=== PATIENT | female | born 1980 | race Hispanic/Latino ===

== ENCOUNTER 2017-11-08 12:47 | Inpatient (IN) | payer SELFPAY ==
[2017-11-08 13:18] LABS: #Eosinphils 0.1 thou/uL (0.0-0.7); #Lymphocytes 2.7 thou/uL (1.20-3.40); #Monocytes 0.8 thou/uL (0.11-0.59); #Neutrophils 9.7 thou/uL (1.40-6.50); %Basophils 0.3 % (0.0-1.0); %Eosinophils 1.1 % (0.0-10.0); %Monocytes 5.8 % (0.0-10.0); %Neutrophils 72.9 % (42.0-75.0); Hemoglobin 15.6 g/dL (12.0-16.0); Mean Corpuscular HGB CONC 34.5 g/dL (32.0-36.0); Mean Corpuscular Hemoglobin 31.4 pg (27.0-31.0); Mean Corpuscular Volume 90.8 fL (78.0-98.0); Mean Platelet Volume 8.2 fL (7.4-10.4); Platelet Count 378 thou/uL (130-400); RBC Distribution Width 11.9 % (11.5-14.5); Red Blood Cell (RBC) Count 4.97 mill/uL (4.20-5.40); White Blood Cell (WBC) Count 13.3 thou/uL (4.8-10.8)
[2017-11-08 13:31] LABS: Bilirubin Negative (Negative); Blood, Urine Negative (Negative); Clarity CLEAR (Clear); Glucose, Urine (Dipstick) Negative (Negative); Leukocyte Negative (Negative); Nitrite Negative (Negative); Protein, Urine (Dipstick) Negative (Neg-Trace); Specific Gravity, Urine 1.013 (1.002-1.036); Urobilinogen 0.2 mg/dL (0.2-1.0)
[2017-11-08 13:36] LABS: Pregnancy Test - Urine (BHCG) Negative (Negative); Pregu Control Background? CLEAR/WHITE (CLR/WHITE); Pregu Control Bar Appear? YES (CONTROL BAR); Specific Gravity 1.014 (1.002-1.036)
[2017-11-08 13:40] LABS: ALT (SGPT) 27 U/L (8-55); AST (SGOT) 24 U/L (5-34); Albumin 4.8 g/dL (3.5-5.0); Alkaline Phosphatase 110 U/L (40-150); Anion Gap 12 mmol/L (10-20); BUN (Urea Nitrogen) 7 mg/dL (7.0-18.7); Bilirubin, Total 1.5 mg/dL (0.2-1.2); Calc. Creatinine Clearance 0 mL/min (70-130); Calcium 9.6 mg/dL (7.8-10.44); Carbon Dioxide 26 mmol/L (22-29); Chloride 102 mmol/L (98-107); Estimated GFR-MDRD Greater than 90; Globulin 3.5 g/dL (2.4-3.5); Glucose 98 mg/dL (70-105); Lipase 9 U/L (8-78); Potassium 3.8 mmol/L (3.5-5.1); Protein, Total 8.3 g/dL (6.0-8.3); Sodium 136 mmol/L (136-145)
[2017-11-08 14:09] LABS: CKMB 0.3 ng/mL (0-6.6); Troponin I Less than 0.010 ng/mL (< 0.028)
[2017-11-08] MEDS ORDERED: Morphine 4 MG/ML VIAL ONE ×2 (16:31→17:40)
[2017-11-08] MEDS ORDERED: Ondansetron HCl/PF 4 MG/2 ML Vial ONE ×2 (16:31→17:48)
--- NOTE | 2017-11-08 16:38 | ULT ---
GALLBLADDER ULTRASOUND: HISTORY: Abdominal pain with nausea and vomiting. FINDINGS: The gallbladder shows slight distention. There is a large echogenic gallstone in the neck of the gal lbladder, and there is echogenic sludge and/or gravel also in the neck of the gallbladder. The gallb ladder wall does not appear thickened. The common duct is of normal caliber, measured at 5 mm. The visualized liver, pancreas, and right kidney appear unremarkable. IMPRESSION: Cholelithiasis. A large gallstones is lodged in the neck of the gallbladder, and there is echogenic sludge/gravel in the gallbladder lumen. POS: KATHE
[2017-11-08] MEDS ORDERED: cefOXitin 2 GM, Syringe 1 ML in Sterile Water 10 ML SLOW IVP SCH (19:00)
[2017-11-08] MEDS ORDERED: cefOXitin 2 GM in Sodium Chloride 0.9% 100 ML IVPB SCH (19:15)
[2017-11-08] MEDS ORDERED: Ketorolac Tromethamine 30 MG/ML VIAL ONE (19:27)
[2017-11-08] MEDS ORDERED: Ondansetron HCl/PF 4 MG/2 ML Vial IVP PRN (20:52)
[2017-11-08] MEDS ORDERED: Ondansetron ODT 4 MG TAB SL PRN (20:52)
[2017-11-08] MEDS: Dextrose 5 % And 0.9 % NaCl 1,000 ML IV SCH (21:12)
[2017-11-08 22:57] VITALS: BMI 27.2
[2017-11-09 05:26] LABS: #Eosinphils 0.1 thou/uL (0.0-0.7); #Lymphocytes 1.8 thou/uL (1.20-3.40); #Monocytes 1.2 thou/uL (0.11-0.59); #Neutrophils 13.4 thou/uL (1.40-6.50); %Basophils 0.1 % (0.0-1.0); %Eosinophils 0.5 % (0.0-10.0); %Lymphocytes 11.1 % (21.0-51.0); %Monocytes 7.3 % (0.0-10.0); Mean Corpuscular HGB CONC 33.8 g/dL (32.0-36.0); Mean Corpuscular Hemoglobin 30.8 pg (27.0-31.0); Mean Platelet Volume 8.4 fL (7.4-10.4); Platelet Count 324 thou/uL (130-400); RBC Distribution Width 11.9 % (11.5-14.5); Red Blood Cell (RBC) Count 4.53 mill/uL (4.20-5.40); White Blood Cell (WBC) Count 16.5 thou/uL (4.8-10.8)
[2017-11-09 05:36] LABS: ALT (SGPT) 66 U/L (8-55); AST (SGOT) 57 U/L (5-34); Albumin 4.1 g/dL (3.5-5.0); Alkaline Phosphatase 121 U/L (40-150); Anion Gap 12 mmol/L (10-20); BUN (Urea Nitrogen) 7 mg/dL (7.0-18.7); Bilirubin, Total 1.5 mg/dL (0.2-1.2); Calc. Creatinine Clearance 136 mL/min (70-130); Calcium 8.6 mg/dL (7.8-10.44); Carbon Dioxide 20 mmol/L (22-29); Chloride 107 mmol/L (98-107); Estimated GFR-MDRD Greater than 90; Globulin 2.8 g/dL (2.4-3.5); Glucose 112 mg/dL (70-105); Potassium 3.5 mmol/L (3.5-5.1); Protein, Total 6.9 g/dL (6.0-8.3); Sodium 135 mmol/L (136-145)
[2017-11-09] MEDS: Dextrose 5 % And 0.9 % NaCl 1,000 ML IV SCH ×3 (06:36→20:56)
[2017-11-09] MEDS ORDERED: Ondansetron HCl/PF 4 MG/2 ML Vial IVP PRN ×3 (07:08→19:29)
--- NOTE | 2017-11-09 08:27 | HP ---
CHIEF COMPLAINT: Epigastric pain. HISTORY OF PRESENT ILLNESS: Ms. Holden is a previously healthy 37-year-old woman who presented to the emergency room with a 2-day history of epigastric abdominal pain. This came on Saturday and has be en unrelenting since its onset and nothing that she has tried at home has alleviated her pain. She h as had multiple episodes of nausea and nonbloody, non-coffee ground emesis and she has not had any ap petite. She denies fevers, chills, jaundice or icterus. She is unable to identify any triggering or exacerbating factors. She states that she has not really eaten since Saturday. PAST MEDICAL HISTORY: None. PAST SURGICAL HISTORY: Tubal ligation. FAMILY HISTORY: Mother and brother, status post laparoscopic cholecystectomy. No other significant family history. SOCIAL HISTORY: She does not smoke, drink or use illicit drugs. REVIEW OF SYSTEMS: Ten system review of systems is negative except per HPI. The patient states that she has had somewhat darker colored stools recently, but she denies any tarry or melenic appearance to the stool. ALLERGIES: She has no known drug allergies. MEDICATIONS: She takes no chronic medications at home. She was started on cefoxitin in the emergenc y room last night. PHYSICAL EXAMINATION: VITAL SIGNS: The patient has been afebrile since her admission. Heart rate 69, respirations 14, 98% saturated on room air, blood pressure 142/89. GENERAL: Reveals a healthy appearing young woman in no acute distress except for when she takes deep breath or moves around in the bed. HEENT: Unremarkable. NECK: Supple, without lymphadenopathy or thyroid nodules. HEART: Regular in its rate and rhythm without murmurs, rubs or gallops. LUNGS: Clear to auscultation bilaterally, but she does have pain when she takes deep breath. ABDOMEN: Soft and nondistended. She is very tender to palpation in the right upper quadrant with a positive Lenz sign, otherwise nontender to palpation. No palpable hernias or masses. EXTREMITIES: Warm and well perfused without edema. NEUROLOGIC: No focal deficits. PSYCHIATRIC: Alert, oriented, and appropriate. LABORATORY DATA AND X-RAY FINDINGS: White count is elevated at 16 this morning with a left shift. E lectrolytes are unremarkable. BUN is elevated at 1.5, AST and ALT are 57 and 66, lipase was normal o n admission. Ultrasound images are reviewed and I agree with the written report. The patient has a large stone impacted in the neck of the gallbladder. The common bile duct is normal. Her wall does not appear thickened, but on a few images, she appears to have some pericholecystic edema. ASSESSMENT: Cholelithiasis and cholecystitis. PLAN: Laparoscopic cholecystectomy with intraoperative cholangiogram today. I think it is unlikely that she has choledocholithiasis and I suspect that her elevated LFTs are due to her cholecystitis ho wever. The patient's diagnosis and the recommended treatment were discussed with her and her in detail. Inherent risks of the surgery were also discussed. These include but are not limited to bleeding, infection, risks of anesthesia, damage to nearby structures including bowel, liver and ed e duct, need for open surgery, need for other procedures. She understands and accepts these risks an d wishes to proceed. We will maintain her on IV fluids, bowel rest and antibiotics pending her surge ry which should be this morning.
[2017-11-09] MEDS: cefOXitin 2 GM in Sodium Chloride 0.9% 100 ML IVPB SCH ×2 (08:32→20:59)
[2017-11-09] MEDS ORDERED: HYDROmorphone 0.5 MG/0.5 ML SYRINGE ONE (09:27)
[2017-11-09] MEDS ORDERED: Fentanyl 100 MCG/2 ML VIAL ONE ×2 (10:58→17:42)
[2017-11-09] MEDS ORDERED: Bupivacaine/Epinephrine 0.25% 30 ML VIAL ONE ×2 (11:08→18:31)
[2017-11-09] MEDS ORDERED: Iothalamate Meglumine 60% 50 ML VIAL FS ONE (11:08)
[2017-11-09] MEDS ORDERED: cefOXitin 2 GM VIAL ONE (11:44)
[2017-11-09] MEDS ORDERED: HYDROmorphone 2 MG/ML VIAL SLOW IVP PRN ×2 (12:29→19:29)
[2017-11-09] MEDS ORDERED: Promethazine HCl 25 MG/ML VIAL SLOW IVP PRN ×2 (12:29→19:29)
[2017-11-09] MEDS ORDERED: Promethazine HCl 25 MG/ML VIAL IM PRN ×2 (12:29→19:29)
--- NOTE | 2017-11-09 12:46 | RAD ---
INTRAOPERATIVE CHOLANGIOGRAM: DATE: 11/09/17. HISTORY: Laparoscopic cholecystectomy in a patient with cholelithiasis. FINDINGS: Intraoperative fluoroscopic images were provided for Dr. Robledo. Two provided images of the right u pper quadrant demonstrate surgical instruments overlying the right upper quadrant. Cystic duct is ca nnulated with surgical clips adjacent to the cystic duct. There is opacification of the common duct with evidence of free spill of contrast into the duodenum. There is only limited opacification of th e intrahepatic bile ducts which are not particularly dilated. The common duct is at the upper limits of normal. No persistent filling defect is seen within the common duct. There is slight irregularit y of the most distal common duct, but this is probably within normal limits. Correlation with intrao perative findings is recommended. POS: KATHE
[2017-11-09] MEDS ORDERED: Acetaminophen 325 MG TAB PO PRN ×2 (13:28→13:29)
[2017-11-09] MEDS ORDERED: HYDROcodone/Acetaminophen 7.5/325 mg Tablet PO PRN (13:29)
[2017-11-09] MEDS ORDERED: Ibuprofen 200 MG TAB PO PRN ×2 (13:31)
--- NOTE | 2017-11-09 14:47 | PDOC.OP ---
Operative Note - Operative Note Operative Note: PROCEDURE: Laparoscopic cholecystectomy with intraoperative cholangiogram SURGEON: Gianni Robledo M.D. DATE OF PROCEDURE: 11/09/2017 11/09/2017 PREOPERATIVE DIAGNOSIS: Cholelithiasis and cholecystitis, possible choledocholithiasis: POSTOPERATIVE DIAGNOSIS: Cholelithiasis and cholecystitis HISTORY: Patient with severe unrelenting epigastric pain and ultrasound showing a stone lodged in the neck of the gallbladder with pericholecystic fluid. Laparoscopic cholecystectomy was recommended for symptomatically relief.: 2 g was recommended due to mild elevation of LFTs. FINDINGS: Distended and inflamed edematous gallbladder with large gallstone in the neck of the gallbladder. Small cystic duct and normal cholangiogram. PROCEDURE IN DETAIL: After informed consent was obtained and appropriate preoperative antibiotics were administered, the patient was taken to the operating room and placed in the supine position and general endotracheal anesthesia was administered. The stomach was decompressed with an OG tube and the abdomen was prepped and draped in standard sterile fashion. Local anesthesia was infused to the skin and subcutaneous tissues at the umbilical level. A transverse skin incision was made. The fascia was elevated and a Veress needle was placed into the abdominal cavity without difficulty. Opening pressure was less than 5 and carbon dioxide gas easily insufflated to an intra- abdominal pressure of 15, which the patient tolerated well. The Veress needle was withdrawn and a [place] port advanced under direct vision. The abdominal cavity was carefully examined. There was no evidence of Veress needle or of trocar injury. Local anesthesia was infused to the skin and subcutaneous tissues at the epigastric, right upper quadrant, and right lateral abdominal sites and trocars were placed under direct vision of the laparoscope. The fundus of the gallbladder was too taut to grasp so it was aspirated with removal of about 100 mL's of colorless bile. Following this the fundus was able to be grasped and retracted superiorly. The infundibulum was grasped and retracted laterally. The serosa was stripped inferiorly at the level of the neck of the gallbladder exposing the cystic duct and artery which were traced clearly to their insertion in the gallbladder. These were dissected free circumferentially and the cystic duct was clipped at the level of the neck of the gallbladder. The cystic artery was clipped but not divided. An incision was made in the cystic duct inferior to the clip and the cystic duct was palpated with no stones palpable. Clear bile was seen to flow from the cystic duct incision. A cholangiogram catheter was introduced and placed into the cystic duct and secured with a clip. A cholangiogram was obtained which showed an adequate length of cystic duct. There was normal filling of the common bile duct with free flow of contrast into the duodenum. There was normal retrograde flow into the common hepatic duct beyond the level of the bifurcation without filling defects. The cholangiogram catheter was removed and the cystic duct clipped below the incision in the cystic duct. The cystic duct was divided between these clips and the previously placed clip. The cystic artery was clipped and divided between the previously placed clips. 2 additional small branches of the cystic artery were identified posteriorly and these were also clipped and divided between clips. The gallbladder was then dissected free of the gallbladder bed using hook electrocautery. Prior to complete removal of the gallbladder from the gallbladder bed, the area of the cystic duct and artery stumps was examined. The clips were in good position completely across these structures and there was no bleeding and no leakage of bile. The gallbladder was then placed into an EndoCatch bag and drawn out through the epigastric incision. The epigastric trocar was replaced and the operative site easily irrigated to clear. There was no significant bleeding or spillage of bile. The epigastric trocar was removed and the fascia closed under direct laparoscopic vision with a 0 Vicryl suture on a GraNee needle in a figure-of- eight manner with excellent technical result. The right upper quadrant and right lateral abdominal trocars were removed and hemostasis verified. Carbon dioxide gas was allowed to desufflate through the umbilical trocar which was then removed. The skin incisions were closed with 4-0 subcuticular Monocryl sutures and Dermabond dressings were placed. The patient was extubated and taken to the recovery room in good condition. There were no complications. ESTIMATED BLOOD LOSS: Minimal. SPECIMEN : Gallbladder and contents.
[2017-11-09] MEDS ORDERED: Ketorolac Tromethamine 30 MG/ML VIAL ONE (15:59)
[2017-11-09] MEDS ORDERED: PHENYLEPHRINE-NS 100 MCG/ML 10 ML SYRINGE ONE (15:59)
[2017-11-09] MEDS ORDERED: Ondansetron HCl/PF 4 MG/2 ML Vial ONE ×2 (15:59)
[2017-11-09] MEDS ORDERED: Lidocaine 1% PF 5 ML VIAL ONE (15:59)
[2017-11-09] MEDS ORDERED: Succinylcholine Chloride 20 MG/ML 10 ml SYRINGE FS ONE (15:59)
[2017-11-09] MEDS ORDERED: Dexamethasone 20 MG/5 ML VIAL ONE (15:59)
[2017-11-09] MEDS ORDERED: PROPOFOL 200 MG/20 ML VIAL ONE (15:59)
[2017-11-09] MEDS ORDERED: Glycopyrrolate 0.2 MG/ML 5 ML SYRINGE ONE (15:59)
[2017-11-09] MEDS ORDERED: Sodium Chloride 0.9% 1,000 ML IV SCH (16:45)
--- NOTE | 2017-11-09 17:18 | CT ---
NONCONTRAST CT ABDOMEN AND PELVIS: 11/09/17 HISTORY: Diaphoretic and hypotensive. Concern for bleed. FINDINGS: There is increased density fluid seen adjacent to the right hepatic lobe and extending into the right pericolic gutter as well as into the pelvis related to hemorrhage. Fluid is also seen adjacent to th e spleen. Post cholecystectomy changes are noted. There is free intraperitoneal gas related to recent postsurgical changes. Stranding is seen within the anterior abdomen likely related to port sites. There is bibasilar atelectasis. The spleen, pancreas, bilateral adrenal glands, kidneys, urinary bladder, and uterus demonstrate a gr ossly normal nonenhanced CT appearance. Small fat containing umbilical hernia is identified. IMPRESSION: 1. Evidence of hemorrhage adjacent to the liver, in the region of the gallbladder fossa and exte nding into the right paracolic gutter and subsequently into the pelvis. There is evidence of post cho lecystectomy changes with pneumoperitoneum likely related to the recent postsurgical changes. 2. Above findings were discussed with Dr. Robledo on 11/09/17 at 1706 hours. POS: KATHE
[2017-11-09] MEDS ORDERED: Ketamine 50 MG/ML VIAL ONE (17:42)
[2017-11-09] MEDS ORDERED: Midazolam HCl 2 mg/2 ml Vial ONE (17:42)
[2017-11-09 20:26] LABS: Hemoglobin 12.5 g/dL (12.0-16.0)
[2017-11-09] MEDS: HYDROcodone/Acetaminophen 7.5/325 mg Tablet PO PRN (21:06)
[2017-11-09 21:07] LABS: INR-International Normal Ratio 1.2; PTT 25.8 SEC (22.9-36.1); Prothrombin Time 15.6 SEC (12.0-14.7)
[2017-11-10 06:06] LABS: #Lymphocytes 1.9 thou/uL (1.20-3.40); #Monocytes 1.5 thou/uL (0.11-0.59); #Neutrophils 10.2 thou/uL (1.40-6.50); %Eosinophils 0.3 % (0.0-10.0); %Monocytes 10.7 % (0.0-10.0); %Neutrophils 74.9 % (42.0-75.0); Hemoglobin 8.5 g/dL (12.0-16.0); Mean Corpuscular HGB CONC 34.1 g/dL (32.0-36.0); Mean Corpuscular Hemoglobin 31.2 pg (27.0-31.0); Mean Corpuscular Volume 91.3 fL (78.0-98.0); Mean Platelet Volume 8.3 fL (7.4-10.4); Platelet Count 249 thou/uL (130-400); RBC Distribution Width 11.8 % (11.5-14.5); Red Blood Cell (RBC) Count 2.72 mill/uL (4.20-5.40); White Blood Cell (WBC) Count 13.6 thou/uL (4.8-10.8)
[2017-11-10 06:08] LABS: ALT (SGPT) 77 U/L (8-55); AST (SGOT) 67 U/L (5-34); Alkaline Phosphatase 74 U/L (40-150); Anion Gap 10 mmol/L (10-20); BUN (Urea Nitrogen) 6 mg/dL (7.0-18.7); Bilirubin, Total 0.9 mg/dL (0.2-1.2); Calc. Creatinine Clearance 141 mL/min (70-130); Calcium 7.9 mg/dL (7.8-10.44); Carbon Dioxide 20 mmol/L (22-29); Chloride 110 mmol/L (98-107); Estimated GFR-MDRD Greater than 90; Glucose 135 mg/dL (70-105); Potassium 3.6 mmol/L (3.5-5.1); Sodium 136 mmol/L (136-145)
[2017-11-10] MEDS: HYDROcodone/Acetaminophen 7.5/325 mg Tablet PO PRN ×2 (06:39→16:40)
[2017-11-10] MEDS: Dextrose 5 % And 0.9 % NaCl 1,000 ML IV SCH ×2 (07:24→12:39)
[2017-11-10] MEDS: cefOXitin 2 GM in Sodium Chloride 0.9% 100 ML IVPB SCH (08:26)
[2017-11-10 15:05] VITALS: BP 111/68; TEMP 99.2
== END 2017-11-10 18:15 | disposition home or self-care (01) | DRG 419 ==
LOC: ERS 12:47 → SURG A 20:38
PROVIDERS: ADMIT Surgery; ATTEND Surgery
PROC: 0FT44ZZ Resection of Gallbladder, Percutaneous Endoscopic Approach (ICD-10-PCS; principal; 2017-11-08)
PROC: BF101ZZ Fluoroscopy of Bile Ducts using Low Osmolar Contrast (ICD-10-PCS; 2017-11-08)
DX: K80.10 Calculus of gallbladder with chronic cholecystitis without obstruction (principal)
CPT/HCPCS: 36415; 36416; 47532; 74176; 76705; 80053; 81003; 81025; 82274; 82553; 83690; 84484; 85025; 85610; 85730; 86850; 86900; 86901; 88304; 93005; 96361; 96365; 96375; 96376; A4216; J0694; J1100; J1170; J1885; J2001; J2250; J2270; J2405; J2704; J3010; J7050; Q9961